=== PATIENT | male | born 1965 | race Two or more races ===

== ENCOUNTER 2023-05-15 12:14 | Outpatient (AMB) | payer OTHER, SELFPAY ==
--- NOTE | 2023-05-15 12:35 | MHC.PC.OV ---
Vital Signs 05/15/23 12:36 Height 5 ft 5 in Weight 221 lb 6 oz BMI 36.8 BP 152/90 H Blood Pressure Location Rt brachial Position Sitting Pulse 88 Pulse Source Pulse Oximeter Pulse Oximetry (%) 97 Oxygen Delivery Method Room Air Intake Visit Reasons: EM[employer]OYEE [employer] in need of BP medication Intake Note: Pt is here to [facility] care pt had a colon screening 5-6 years ago in [place] Allergies oxycodone [From Percocet] Allergy (Intermediate, Verified 05/15/23 12:49) Vomiting Medication List - Last Reconciled 05/15/23 by PAULO Gonzales No Known Home Meds Tobacco use date assessed: 05/15/23 Dental Screening Dental Screen Date: 05/15/23 Did you have a dental visit in the last 12 months?: No Did you have a dental problem in the last 6 months where you did not have access to dental care?: No Was dental information given to patient?: No HPI HPI Comments History of Present Illness Details Patient is a 58-year-old male here to [facility] care. He has a past medical history significant for hypertension, hyperlipidemia, diabetes type 2. He has not had a primary care provider and over 4 months, and states that he has been out of his medication for the past 2 months. In office A1c is 11.1. Will restart patient on his lisinopril. Will restart patient on 500 mg metformin p.o. b.i.d.. Will also start patient on Jardiance to be taken as directed. Patient does not have blood glucose monitor, will order. Will also refer to Podiatry and Ophthalmology. Patient is due for his colonoscopy. Will refer. [facility] Social History Housing: House Patient Tobacco Use Status: Never used Tobacco e-Cigarette/Vaping Use: Never Used Second Hand Smoke Exposure: No service: No Current occupational status: employed Current occupation: the [employer] Cognitive needs: No Hearing needs: No Vision needs: No Questionnaire PHQ-9 Over the last 2 weeks, how often have you been bothered by any of the following problems? 1. Little interest or pleasure in doing things: not at all 2. Feeling down, depressed, or hopeless: not at all 3. Trouble falling or staying asleep, or sleeping too much: not at all 4. Feeling tired or having little energy: not at all 5. Poor appetite or overeating: not at all 6. Feeling bad about yourself - or that you are a failure or have let yourself or your family down: not at all 7. Trouble concentrating on things, such as reading the newspaper or watching television: not at all 8. Moving or speaking so slowly that other people could have noticed. Or the opposite - being so fidgety or restless that you have been moving around a lot more than usual: not at all 9. Thoughts that you would be better off or of hurting yourself in some way: not at all Total score: 0 Depression Screening Interpretation: Negative Depression Screening Done: Yes 76348 - PHQ-9 Billing: Yes Source: Developed by Drs. Ken Ge, Nora Lizarraga, Giuseppe Thurston and colleagues, with an educational emilie from [employer]. Thrive Questionnaire Date Thrive assessed: 05/15/23 I am a: Patient What is your living situation today?: I have a steady place to live Within the past 12 months, did the food you bought not last and you didn't have the money to get more?: Never true Within the past 12 months, did you worry whether your food would run out before you got money to buy more?: Never true Do you have trouble paying for medicines?: No Do you have trouble getting transportation to medical appointments?: No Do you have trouble paying your heating and electricity bill?: No Do you have trouble taking care of your child, family member or friend?: No Do you have trouble with day-to-day activities such as bathing, preparing meals, shopping, managing finances, etc.?: No Are you currently unemployed and looking for a job?: No Are you interested in more education?: No THRIVE Score: 0 ELISA-7 AMB Questionnaire ELISA-7 Date ELISA - 7 assessed: 05/15/23 Feeling nervous, anxious, or on edge: 0 = Not at all Not being able to stop or control worryin = Not at all Worrying too much about different things: 0 = Not at all Trouble relaxin = Not at all Being so restless that it is hard to sit still: 0 = Not at all Becoming easily annoyed or irritable: 0 = Not at all Feeling afraid as if something awful might happen: 0 = Not at all Total ELISA-7 score (0-4 normal; 5-9 mild; 10-14 moderate; 15-21 severe): 0 Source: Developed by Drs. Ken Ge, Nora Lizarraga, Giuseppe Thurston and colleagues, with an educational emilie from [employer]. ELISA-7 Assessment Billing ELISA-7 Assessment Tool: ELISA-7 Assessment 56565 Review of Systems Const Details: Constitutional : No Weight loss, No Fever, No Chills, No Fatigue, No Malaise ENT/Mouth : No sore throat, No Rhinorrhea, Eyes: No Eye Pain, No Swelling, No Redness Cardiovascular : No Chest Pain, No SOB, No Dyspnea on Exertion, No Orthopnea, No Edema, Admits occasional Palpitations Respiratory : No Cough, No Sputum, No Wheezing Gastrointestinal : No Nausea, No Vomiting, No Diarrhea, No Constipation, No abdominal Pain, No Hematochezia, No Melena Genitourinary : No Dysuria, Admits Urinary Frequency, No Hematuria, Musculoskeletal : Admits left knee pain. Skin : No Skin Lesions, No rash Neuro : No Weakness, Admits little Numbness of LLE, No Dizziness, No Headache Psych : No Anxiety/Panic, No Depression Heme/Lymph: No Bruising, No Bleeding,No Lymphadenopathy Endocrine : Admits Polyuria, No Polydipsia All other systems reviewed and are negative Physical exam (Primary Care) Vital Signs: Last Vital Signs Pulse 88 05/15/23 12:36 BP 152/90 H 05/15/23 12:36 Pulse Ox 97 05/15/23 12:36 Oxygen Delivery Method Room Air 05/15/23 12:36 Care Plan Goal for BP management: Patient is being started on his lisinopril. Will come back to the office in 2 weeks for blood pressure recheck BMI result Body Mass Index 36.8 Tobacco/Smoking Status: Tobacco use Status Tobacco use date assessed 05/15/23 05/15/23 12:43 Patient Tobacco Use Status Never used Tobacco 05/15/23 12:43 e-Cigarette/Vaping Use Never Used 05/15/23 12:43 PHQ-9: PHQ-9 Score PHQ-9: Total score 0 05/15/23 12:46 Depression Screening Interpretation: Negative Thrive Assessment: Date of Thrive Assessment Date Thrive assessed 05/15/23 05/15/23 12:46 Const Other: Appearance: Alert.? Oriented X3.? No acute distress.? Head: Normocephalic, atraumatic, Eyes: Pupils equal, round and reactive to light.? Neck: Normal inspection.? Neck supple.? CVS: Normal heart rate and rhythm.? Pulses normal.?+ systolic murmur. Respiratory: No respiratory distress.? Breath sounds normal.? Abdomen: Soft and nontender.?Distended. Skin: Skin warm and dry.? Normal skin color.? Normal skin turgor.? Extremities: +crepitus to left knee on extension. Neuro: Oriented X 3.? No motor deficit.?No sensory deficit. CN 2-12 intact Results AMB Hemoglobin A1c AMB Hemoglobin A1c 11.4 % Last Edit by Yamila Schultz CMA on 05/15/23 13:44 Assessment and Plan Assessment & Plan (1) Left knee pain: Code(s): M25.562 - Pain in left knee Qualifiers: Chronicity: unspecified Qualified Code(s): M25.562 - Pain in left knee Plan: Will obtain x-ray of left knee. Will order diclofenac topical gel to be taken as prescribed. Patient has been educated on side effects this medication (2) Diabetes mellitus type 2 with complications: Comment: Patient's A1c was 11.1 office today. He has been off his medications for 4 months. Will restart metformin, will add Jardiance. Will also order patient glucose monitoring kit. Patient will have diabetic Education in 2 weeks Code(s): E11.8 - Type 2 diabetes mellitus with unspecified complications (3) Systolic murmur: Comment: On physical exam patient had systolic murmur. And in office EKG was abnormal. Will refer to echocardiogram to Cardiology. Does have history of heart palpitations Code(s): R01.1 - Cardiac murmur, unspecified (4) Hypertension: Comment: Patient will be restarted on 10 mg lisinopril. He will have blood pressure rechecked in 2 weeks in office. He has been educated on signs of worsening symptoms and when to report back to the office or when to present to the ED. Code(s): I10 - Essential (primary) hypertension Qualifiers: Hypertension type: unspecified Qualified Code(s): I10 - Essential (primary) hypertension (5) Palpitations: Comment: Patient will get referral to Cardiology, will have echocardiogram ordered. Code(s): R00.2 - Palpitations Plan: Take your medications as prescribed. If you were prescribed antibiotics today, it is important that you take your medication to their entirety, do not skip any doses, do not finish them early. Follow-up with your primary care provider this week. Return to the emergency department with new or worsening symptoms. Such as fevers, chills, chest pain, shortness of breath, nausea, vomiting, dizziness, headache, vision changes, lethargy In case of emergency call 911 Plan Follow-up in 2 weeks for blood pressure recheck. Follow-up in 1 month. Orders: Orders Complete Blood Count Auto Diff Today Z13.0 - Encounter for screening for diseases of the blood and blood-forming organs and certain disorders involving the immune mechanism Comprehensive Met. Panel Today Z91.89 - Other specified personal risk factors, not elsewhere classified PSA,Total (Free>4and<10) Today Z12.5 - Encounter for screening for malignant neoplasm of prostate XR knee LT 2V Today M25.562 - Pain in left knee AMB EKG-In Office Today R00.2 - Palpitations CA echo transthoracic complete Today R01.1 - Cardiac murmur, unspecified AMB Hemoglobin A1c Today E11.8 - Type 2 diabetes mellitus with unspecified complications Vitamin D 25-OH (D2 and D3) Today Z13.21 - Encounter for screening for nutritional disorder UA CC w/rflx Micro + Cult Today Z13.89 - Encounter for screening for other disorder TSH reflex Free T4 Today Z13.29 - Encounter for screening for other suspected endocrine disorder Uric Acid Today M25.569 - Pain in unspecified knee Referrals Ophthalmology Referral E11.9 - Type 2 diabetes mellitus without complications Nurse Navigator Referral E11.8 - Type 2 diabetes mellitus with unspecified complications Gastroenterology Referral Z12.11 - Encounter for screening for malignant neoplasm of colon Podiatry Referral E11.9 - Type 2 diabetes mellitus without complications Cardiology Referral R00.2 - Palpitations Medications: New metformin 500 mg PO DAILY 90 tabs 0RF lisinopril 10 mg PO DAILY 90 tabs 0RF metformin 1,000 mg (2 x 500 mg) PO DAILY 90 tabs 0RF blood sugar diagnostic (FreeStyle Lite Strips) As directed 100 ea 0RF lancets (FreeStyle Lancets) As directed 100 ea 0RF diclofenac sodium 1% (Arthritis Pain (diclofenac)) apply to single elbow, wrist or hand; for hand includes palm/fingers/back of hand 2 grams topical QID 100 grams 0RF empagliflozin (Jardiance) 10 mg PO DAILY 90 tabs 0RF blood-glucose meter (FreeStyle Lite Meter kit) As directed 1 ea 0RF Coding Level of Care Code New Pt Level 3 (96878) Diagnoses Left knee pain, unspecified chronicity M25.562 Chronicity: unspecified Diabetes mellitus type 2 with complications E11.8 Systolic murmur R01.1 Hypertension, unspecified type I10 Hypertension type: unspecified Palpitations R00.2 Additional Codes ELISA-7 Assessment Billing - ELISA-7 Assessment Tool: ELISA-7 Assessment [id number] ([id number]) Time Spent (min) 50
[2023-05-15 12:36] VITALS: BP 152/90; PULSE 88; O2SAT 97; BMI 36.8
== END 2023-05-15 13:50 | disposition home or self-care (01) ==
PROVIDERS: Visit Provider Nurse Practitioner Primary Care
DX: M25.562 Pain in left knee (principal); E11.8 Type 2 diabetes mellitus with unspecified complications; R01.1 Cardiac murmur, unspecified; I10 Essential (primary) hypertension; R00.2 Palpitations
CPT/HCPCS: 83036; 93000; 99204

== ENCOUNTER 2023-05-30 08:29 | Outpatient (REF) | payer OTHER, SELFPAY ==
[2023-05-30 11:09] LABS: Appearance Urine Clear; Color Urine Yellow; Glucose Urine UA >=1000 mg/dL (Negative); Leukocyte Esterase Urine Negative (Negative); Nitrite Urine Negative (Negative); PH 5.5 (5.0-9.0); Specific Gravity - Urine 1.025 (1.005-1.025); UMIC TRIGGER UACC YES; Urine Blood Trace (Negative); Urine Ketones Negative (Negative); Urine Protein 300 (3+) mg/dL (Neg-Trace)
[2023-05-30 11:17] LABS: Bacteria Urine None Seen (None Seen); Hyaline Casts Urine 0-2 /LPF (0-2); RBC Urine 0-2 /HPF (0-2); Squamous Epithelial Cell Urine 0-2 /HPF (0-2); WBC Urine 0-5 /HPF (0-5)
[2023-05-30 11:19] LABS: Basophils Absolute Auto 0.1 X10*3/uL (0.0-0.2); Basophils Percent Auto 1.4 % (0-2); Eosinophils Absolute Auto 1.8 X10*3/uL (0.0-0.4); Eosinophils Percent Auto 22.3 % (0-4); Hemoglobin 12.9 g/dl (14.0-18.0); Imm Gran Abs Auto 0.04 X10*3/uL (0.00-0.03); Imm Gran Pct Auto 0.5 % (0.0-0.4); Lymphocytes Absolute Auto 1.5 X10*3/uL (1.2-4.9); Lymphocytes Percent Auto 19.1 % (20-40); MANUAL DIFF FLAG SCAN; Mean Corpuscular HGB Conc 33.9 g/dl (31.0-36.0); Mean Corpuscular Hemoglobin 29.5 pg (27.0-33.0); Mean Platelet Volume 10.5 fL (9.4-12.4); Monocytes Absolute Auto 0.5 X10*3/uL (0.1-1.2); Monocytes Percent Auto 6.7 % (2-11); Platelet Count 312 X10*3/uL (160-400); Red Blood Count 4.37 X10*6/uL (4.60-5.80); Red Cell Distribution Width 12.7 % (11.0-16.0); SCAN SMEAR FLAG 1; White Blood Count 7.9 X10*3/uL (4.8-10.8)
[2023-05-30 11:47] LABS: PSA,Total (Free>4and<10) 1.53 ng/mL (0.00-4.00)
[2023-05-30 11:53] LABS: SLIDE REVIEW VERIFIED
[2023-05-30 12:01] LABS: Alanine Aminotransferase 19 U/L (0-40); Albumin Level 3.1 g/dL (3.5-5.0); Alkaline Phosphatase 103 U/L (39-117); Anion Gap 13 (12-20); Aspartate Amino Transferase 13 U/L (5-37); Bilirubin Total 0.5 mg/dL (0.0-1.0); Blood Urea Nitrogen 32 mg/dL (9-16); Calcium 8.9 mg/dL (8.4-10.2); Carbon Dioxide 23 mmol/L (22-29); Chloride 106 mmol/L (96-108); Cholesterol 376 mg/dL (<200); Estimated Glomerular Filt Rate 56; Glucose Random 304 mg/dL (60-115); HDL Cholesterol 46 mg/dL (>40); Potassium 4.8 mmol/L (3.3-5.1); Sodium 137 mmol/L (135-145); TSH reflex Free T4 1.16 uIU/mL (0.32-4.0); Total Protein 6.4 g/dL (6.5-8.0); Triglycerides 567 mg/dL (<150); Uric Acid 6.6 mg/dL (3.4-7.0)
[2023-06-04 14:09] LABS: Vitamin D 25-OH, D2 <4 ng/mL; Vitamin D 25-OH, D3 15 ng/mL; Vitamin D 25-OH, Total 15 ng/mL (30-100)
== END 2023-05-30 08:30 | disposition home or self-care (01) ==
LOC: HO.HMGCLDS 08:29
PROVIDERS: PCP Nurse Practitioner Primary Care; Visit Provider Nurse Practitioner Primary Care
DX: Z13.0 Encounter for screening for diseases of the blood and blood-forming organs and certain disorders involving the immune mechanism (principal); Z13.29 Encounter for screening for other suspected endocrine disorder; Z12.5 Encounter for screening for malignant neoplasm of prostate; Z13.21 Encounter for screening for nutritional disorder; E11.8 Type 2 diabetes mellitus with unspecified complications; Z91.89 Other specified personal risk factors, not elsewhere classified; M25.569 Pain in unspecified knee
CPT/HCPCS: 36415; 80053; 80061; 81001; 82306; 84153; 84443; 84550; 85025

== ENCOUNTER → 2024-04-20 14:09 | Outpatient (BNVA) | payer OTHER, SELFPAY | PROVIDERS: PCP Nurse Practitioner Primary Care; Visit Provider Nurse Practitioner Family ==